=== PATIENT | male | born 1955 | race Caucasian/White ===

== ENCOUNTER → 2018-09-15 | Outpatient (CLI) | payer MEDICARE, SELFPAY ==
[~2018-09-15] MED LIST: B Complete1 EACH; BUDE200IP IH; CYAN100 PO; DESL5 PO; DICMIS75EC PO; ERGO400; GABA300 PO; GLUC500; MOMENI; TRAZ150T57 PO; TRAZ50 PO; Vitamin A8000 UNIT; ZOLP10 PO; [UNRECOGNIZED DRUG - CODE]
== END | disposition home or self-care (01) ==
LOC: LAB SHORT 10:07 → PLD 10:07
DX: D22.39 Melanocytic nevi of other parts of face (principal)
CPT/HCPCS: 88305

== ENCOUNTER → 2019-03-10 | Outpatient (CLI) | payer MEDICARE, OTHER | END | disposition home or self-care (01) | LOC: PLD 14:08 → LAB SHORT 14:08 | DX: C44.329 Squamous cell carcinoma of skin of other parts of face (principal) | CPT/HCPCS: 88305 ==

== ENCOUNTER → 2020-05-22 | Outpatient (CLI) | payer MEDICARE, OTHER ==
[~2020-05-22] MED LIST changes: +Voltaren100 GM
== END | disposition home or self-care (01) ==
LOC: PLD 15:43 → LAB SHORT 15:43
DX: D48.5 Neoplasm of uncertain behavior of skin (principal)
CPT/HCPCS: 88305

== ENCOUNTER → 2020-09-13 | Outpatient (CLI) | payer MEDICARE, OTHER | LOC: LAB SHORT 16:03 → PLD 16:03 | DX: L90.5 Scar conditions and fibrosis of skin (principal) | CPT/HCPCS: 88305 ==

== ENCOUNTER → 2021-01-30 | Outpatient (CLI) | payer MEDICARE, OTHER | END | disposition home or self-care (01) | LOC: LAB 08:12 → LAB SHORT 08:12 | DX: L28.0 Lichen simplex chronicus (principal) | CPT/HCPCS: 88305; 88312 ==

== ENCOUNTER → 2021-06-04 | Outpatient (CLI) | payer MEDICARE, OTHER | END | disposition home or self-care (01) | LOC: LAB 11:25 → LAB SHORT 11:25 | DX: D48.5 Neoplasm of uncertain behavior of skin (principal) | CPT/HCPCS: 88305 ==

== ENCOUNTER 2023-06-22 12:06 | Emergency (ER) | payer MEDICARE, BC ==
[~2023-06-22] VITALS: Ht 172.7 cm; Wt 93.4 kg
[2023-06-22 12:27] VITALS: BP 154/93
[2023-06-22] MEDS ORDERED: Percocet 5-3251 EACH PO (14:12)
== END 2023-06-22 14:49 | disposition home or self-care (01) ==
LOC: ER 12:06
DX: M25.511 Pain in right shoulder (principal); X50.0XXA Overexertion from strenuous movement or load, initial encounter
CPT/HCPCS: 73030; 99283-25; A9270

== ENCOUNTER 2023-09-05 10:38 | Day surgery (SDC) | payer MEDICARE, BC ==
[~2023-09-05] VITALS: Ht 172.7 cm; Wt 96.6 kg
[~2023-09-05 10:38] MED LIST changes: +CeFAZolin Sodium 2,000 MG VIAL ONE; +Cialis5 MG PO; +EPINEPhrine HCl 1 MG/ML 1ML Amp ONE; +Lactated Ringer's 1,000 ML IV ONE; +Lidocaine HCl 2% 10 ML SDA ONE; +NS 50 ML IV ONE; +Percocet 5-3251 EACH PO; +Ropivacaine 0.5% HCl/Pf 5 MG/ML 20ML VIAL ONE
[2023-09-05] MEDS ORDERED: SILD50TA PO (10:51)
[2023-09-05] MEDS ORDERED: Lactated Ringer's 1,000 ML IV ONE (11:04)
[2023-09-05] MEDS ORDERED: FentaNYL Citrate 50 MCG/ML 2 ML Injection ONE (11:26)
[2023-09-05] MEDS ORDERED: propofoL 20 ML IV ONE (11:26)
--- NOTE | 2023-09-05 11:52 | NUR ---
09/05/23 Polina Shaffer 20ML OF ROPIVACAINE 0.5% MIXED AND VERIFIED WITH 0.1ML OF EPI (1MG/ML) TO MAKE ROPIVACAINE 0.5% WITH EPI 1:200,000 FOR INJECTION AT THE OPSITE BY DR BARRAGAN.
[2023-09-05 12:18] VITALS: BP 150/93
--- NOTE | 2023-09-05 12:19 | NUR ---
09/05/23 Yo9 RICHARD TRINH SEE VSS FOR DETAILS
== END 2023-09-05 12:57 | disposition home or self-care (01) ==
LOC: ORSCSDS 10:38
PROVIDERS: Podiatrist Foot & Ankle Surgery
PROC: 0QBN0ZZ Excision of Right Metatarsal, Open Approach (ICD-10-PCS; principal; 2023-09-05 11:30)
DX: M89.8X7 Other specified disorders of bone, ankle and foot (principal); M20.41 Other hammer toe(s) (acquired), right foot; Z85.46 Personal history of malignant neoplasm of prostate; K21.9 Gastro-esophageal reflux disease without esophagitis; F32.A Depression, unspecified; Z79.899 Other long term (current) drug therapy
CPT/HCPCS: J0171; J0690; J2001; J2704; J2795; J3010; J7120

== ENCOUNTER 2025-05-19 13:53 | Day surgery (SDC) | payer MEDICARE, BC ==
[~2025-05-19] VITALS: Ht 170.2 cm; Wt 97.5 kg
[~2025-05-19 13:53] MED LIST changes: +ALBU90OI INH; -CeFAZolin Sodium 2,000 MG VIAL ONE; +Clomiphene Citr50 MG PO; -EPINEPhrine HCl 1 MG/ML 1ML Amp ONE; -Lactated Ringer's 1,000 ML IV ONE; -Lidocaine HCl 2% 10 ML SDA ONE; +MOBIC15 MG PO; -NS 50 ML IV ONE; -Ropivacaine 0.5% HCl/Pf 5 MG/ML 20ML VIAL ONE; +SILD50TA PO
[2025-05-19 14:42] VITALS: BP 142/89
--- NOTE | 2025-05-19 14:49 | NUR ---
Patient confirms NPO status and agrees with scheduled surgery. Lungs clear T/O to Auscultation.Patient states colon prep results clear. Patient States Post-Procedure ride home has been arranged.
--- NOTE | 2025-05-19 15:18 | NUR ---
05/19/25 1518 Emily Reyna History, Chart, Medications and Allergies reviewed before start of procedure. MONITOR INTACT WITH CONTINUOUS PULSE OXIMETRY, CONTINUOUS END TITAL CO2, 3-LEAD EKG AND INTERMITTENT BLOOD PRESSURE. O2 VIA POM INTACT THROUGHOUT SEDATION/PROCEDURE. DR. GOETZ PROVIDING MAC, SEE ANESTHESIA RECORD.
[2025-05-19 15:57] VITALS: BP 117/86
--- NOTE | 2025-05-19 15:57 | NUR ---
REPORT RECEIVED FROM DARCIE DEVINE. VSS. PT ON RA. PT [id number]&[id number]. PT ABLE TO REPOSITION SELF IN BED. PT REQUESTING PO FLUIDS AND TOLERATING THEM WELL. PT DENIES PAIN, NAUSEA OR OTHER DISCOMFORTS. PT SPOUSE AT BEDSIDE.
[2025-05-19 16:10] VITALS: BP 133/88
--- NOTE | 2025-05-19 16:22 | NUR ---
Patient up to Ambulate independently. Gait steady. VSS and consistent with pt baseline. Pt has no complaints and verbalizes readiness to go home. Discharge instructions reviewed with patient and his spouse. Patient verbalizes understanding. Copy given to patient to take home. Patient States Post-Procedure ride home has been arranged. Discharged via wheelchair to private car for ride home. Pt belongings returned to pt
== END 2025-05-19 16:24 | disposition home or self-care (01) ==
LOC: ORSCMMR 13:53 → ORD 15:15 → ORSCMMR 15:15
PROVIDERS: Surgery
PROC: 0DBK8ZX Excision of Ascending Colon, Via Natural or Artificial Opening Endoscopic, Diagnostic (ICD-10-PCS; principal; 2025-05-19 15:15)
PROC: 0DBM8ZX Excision of Descending Colon, Via Natural or Artificial Opening Endoscopic, Diagnostic (ICD-10-PCS; principal; 2025-05-19 15:15)
DX: Z12.11 Encounter for screening for malignant neoplasm of colon (principal); Z86.0100 Personal history of colon polyps, unspecified; D12.4 Benign neoplasm of descending colon; K63.5 Polyp of colon; K57.30 Diverticulosis of large intestine without perforation or abscess without bleeding; K64.1 Second degree hemorrhoids; G47.33 Obstructive sleep apnea (adult) (pediatric); E11.9 Type 2 diabetes mellitus without complications; E66.9 Obesity, unspecified; Z68.33 Body mass index [BMI] 33.0-33.9, adult; Z79.899 Other long term (current) drug therapy
CPT/HCPCS: 88305; J2704; J7120